=== PATIENT | female | born 1980 | race American Indian/Alaskan Native ===

== ENCOUNTER 2019-12-21 19:44 | Emergency (ER) | payer OTHER, MEDICAID ==
[2019-12-21] MEDS ORDERED: MORPHINE 4 MG/1 ML INJ IV ONE (22:58)
[2019-12-21] MEDS ORDERED: ONDANSETRON 4 MG/2 ML INJ IV ONE (22:58)
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
[2019-12-21 23:36] LABS: Hematocrit 37.6 % (30.3-42.9); Hemoglobin 12.2 gm/dl (10.1-14.3); Mean Corpuscular HGB Conc 33 % (30-34); Mean Corpuscular Volume 88 fl (79-97); Platelet Count 276 K/mm3 (140-440); Red Blood Count 4.27 M/mm3 (3.65-5.03); Red Cell Distribution Width 14.1 % (13.2-15.2)
[2019-12-21 23:52] LABS: BUN/Creatinine Ratio 17; Blood Urea Nitrogen 15 mg/dL (7-17); Calcium 9.2 mg/dL (8.4-10.2); Hemolysis Index 4
[2019-12-21 23:56] LABS: Alanine Aminotransferase 8 units/L (7-56); Albumin 4.4 g/dL (3.9-5)
[2019-12-21 23:59] LABS: Bilirubin,Direct < 0.2 mg/dL (0-0.2)
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
[2019-12-22] MEDS ORDERED: KETOROLAC 10 MG TAB PO ONE (01:44)
[2019-12-22 02:31] VITALS: BP 159/97
[2019-12-22 04:43] LABS: Anisocytosis 1+; Band Neutrophils # (Manual) 0.1 K/mm3; Basophils % (Manual) 0 % (0.0-1.8); Total Cells Counted 100
[2019-12-22 04:44] LABS: Platelet Estimate Consistent w Auto
== END 2019-12-22 02:00 | disposition home or self-care (01) ==
LOC: ED 19:44
DX: S50.01XA Contusion of right elbow, initial encounter (principal); S09.90XA Unspecified injury of head, initial encounter; R07.89 Other chest pain; I10 Essential (primary) hypertension; F12.10 Cannabis abuse, uncomplicated; V89.2XXA Person injured in unspecified motor-vehicle accident, traffic, initial encounter; Y93.89 Activity, other specified; Y92.410 Unspecified street and highway as the place of occurrence of the external cause; Y99.8 Other external cause status
CPT/HCPCS: 36415; 70450; 71260; 72125; 74177; 80048; 80076; 83690; 84703; 85007; 85025; 96374; 96375; 99284; J2270; J2405; Q9967